=== PATIENT | female | born 1970 | race Caucasian/White ===

== ENCOUNTER 2021-02-22 12:27 | Outpatient (CLI) | payer BC, SELFPAY ==
--- NOTE | ~2021-02-22 | US_ITS ---
EXAMINATION: US pelvic complete w TV DATE: 02/22/2021 12:59 INDICATION: Pelvic pain Comparison:No prior studies for comparison. TECHNIQUE: Multiple transabdominal and endovaginal sonographic images of the pelvis performed. FINDINGS: The uterus measures 9.1 x 4.6 x 6.6 cm. The endometrial complex measures 1.4 cm. The right ovary measures 3.4 x 1.9 x 1.9 cm and the left ovary measures 3 x 2.1 x 2.3 cm. There are s mall bilateral follicular changes. There is a left ovarian cyst measuring 2.1 cm. Normal doppler sign al in both ovaries. There is no free fluid in the pelvis. There are no abnormal masses seen on either side. IMPRESSION: 1. Thickened endomtrial complex. The differential diagnosis includes endometrial hyperplasia, polyp a nd carcinoma. Biopsy is recommended. 2: Left ovarian cyst measuring 2.1 cm. Reviewed, dictated and finalized at location B. IMPRESSION: 1. Thickened endomtrial complex. The differential diagnosis includes endometria l hyperplasia, polyp and carcinoma. Biopsy is recommended. 2: Left ovarian cyst measuring 2.1 cm.
--- NOTE | ~2021-02-22 | MM_ITS ---
EXAMINATION: MM screening carol BI w santino HISTORY: Screening mammogram TECHNIQUE: Craniocaudal and mediolateral oblique 3-D tomosynthesis images were obtained and synthetic 2-D images were generated. CAD analysis was submitted and interpreted. COMPARISON: 09/02/2019, 08/27/2016 bilateral digital screening mammogram examinations BREAST PARENCHYMAL COMPOSITION: The breasts are almost entirely fatty. FINDINGS: Left breast biopsy markers; history of prior benign left breast biopsy. There is no evidenc e of suspicious mass, calcification, or architectural distortion to suggest malignancy in either [address]. There has been no suspicious interval change. IMPRESSION: 1. No mammographic evidence of malignancy. 2. Recommend routine screening mammography in one year. BI-RADS Category 1: Negative Reviewed, dictated and finalized at location A.
== END 2021-02-22 12:28 | disposition home or self-care (01) ==
LOC: CHSIMG 12:28
PROVIDERS: PCP Internal Medicine; Visit Provider Nurse Practitioner Family
DX: Z12.31 Encounter for screening mammogram for malignant neoplasm of breast (principal); R10.2 Pelvic and perineal pain; N94.10 Unspecified dyspareunia
CPT/HCPCS: 76830; 76856; 77063; 77067

== ENCOUNTER → 2021-07-13 01:27 | Outpatient (CLI) | payer BC, SELFPAY ==
[2021-07-13 19:38] LABS: SARS-CoV-2 RNA PCR Negative
== END ==
PROVIDERS: PCP Internal Medicine; Visit Provider Obstetrics & Gynecology Gynecology
DX: Z01.812 Encounter for preprocedural laboratory examination (principal); Z20.822 Contact with and (suspected) exposure to COVID-19
CPT/HCPCS: C9803; U0003; U0005

== ENCOUNTER 2021-07-13 09:36 | Outpatient (CLI) | payer BC, SELFPAY ==
[2021-07-13 10:20] LABS: Anion Gap 6 mmol/L (8-16); Blood Urea Nitrogen 18 mg/dL (7-17); Calcium 9.5 mg/dL (8.4-10.2); Carbon Dioxide 30 mmol/L (22-30); Chloride 103 mmol/L (98-107); Estimated Glomerular Filt Rate 58; Glucose 177 mg/dL (65-110); Potassium 4.1 mmol/L (3.4-5.0); Sodium 139 mmol/L (137-145)
== END 2021-07-13 09:37 | disposition home or self-care (01) ==
PROVIDERS: Anesthesiology; PCP Internal Medicine; Visit Provider Obstetrics & Gynecology Gynecology
DX: Z01.812 Encounter for preprocedural laboratory examination (principal); E11.9 Type 2 diabetes mellitus without complications
CPT/HCPCS: 36415; 80048

== ENCOUNTER 2021-07-16 01:06 | Day surgery (SDC) | payer BC, SELFPAY ==
[2021-07-06 15:37] VITALS: BMI 44.1
[2021-07-16] VITALS (7 sets, daily range): BP systolic 119–139; BP diastolic 58–71; PULSE 50–97; RESP 14–16; TEMP 37.1; O2SAT 97
--- NOTE | 2021-07-16 07:25 | WPDHPUPDATE1 ---
History and Physical Update Update Date/Time: 07/16/21 07:25 History and Physical has been reviewed, including an updated exam of the patient. There are NO changes in the patient's condition. Risks, benefits, and alternatives have been discussed and questions answered. Patient agrees to proceed with procedure.
--- NOTE | 2021-07-16 07:25 | PM.HPGS ---
History of Present Illness History of Present Illness Consent: Risks, benefits, and alternatives have been discussed and questions answered. Patient agrees to proceed with procedure. Chief complaint: Thicken Endometrium Narrative: Olivia Moore is a 51 year old female who was 1st seen on June 11 after primary performed ultrasound in January of 2021 that revealed a thickened endometrial lining at 1.4cm. The patient denies change in her bleeding. Patient has had approximately 2 cycles per year for the past 5 to 7 years. She has never gone 1 entire year without a cycle. It was recommended to proceed with workup in the operating room with D&C hysteroscopy. It was recommended in the operating room due to the cervix noted to be scarred and atrophic as well as the patient's BMI being 44. Risks of infection, bleeding, and perforation were reviewed. Possible pathology is discussed. Patient voices understanding and agrees to proceed. She was given Cytotec 1000 mcg to use for 7 days prior to the procedure. Review of Systems Constitutional: Constitutional: Reports night sweats Genitourinary: Genitourinary: Reports dyspareunia [facility] Past Medical History Medical History (Updated 07/16/21 @ 07:33 by Chelsi Mullen MD) Diabetes mellitus type 2 in obese Dyslipidemia GERD without esophagitis Hypertension Morbid obesity with BMI of 40.0-44.9, adult (normal spontaneous vaginal delivery) KIM on CPAP Surgical History Surgical History (Updated 07/16/21 @ 07:31 by Chelsi Mullen MD) History of History of carpal tunnel release Status post LEEP (loop electrosurgical excision procedure) of cervix Or CO2 cone. The patient is unsure of which procedure she had performed in 1995 Family History Family History Father Diabetes mellitus Mother Diabetes mellitus Social History Social History Smoking packs per day: 1 Smoking cigarettes per day: 20.0 Years smoked: 30 Smoking pack-years: 30.00 Smoking status: Former smoker Tobacco type: cigarettes Smoking end date: 10/27/19 Living arrangements: with family Spiritual care concerns: No Meds Home Medications and Allergies Home Medications Medication Instructions Recorded Confirmed Type Zyrtec 10 mg PO DAILY 10/06/19 07/06/21 History losartan-hydrochlorothiazide 1 tablet PO DAILY 10/06/19 07/06/21 History montelukast 10 mg PO DAILY 10/06/19 07/06/21 History pantoprazole 40 mg PO QAM 10/06/19 07/06/21 History insulin aspart U-100 100 unit/mL 10 unit SUB-Q QAM 05/22/20 07/06/21 History (3 mL) subcutaneous pen insulin glargine 100 unit/mL (3 70 unit SUB-Q QPM 05/22/20 07/06/21 History mL) subcutaneous pen fenofibrate 160 mg tablet See Rx Instructions .ROUTE 06/08/21 07/06/21 Rx .COMPLEX #30 tablet cholecalciferol (vitamin D3) 50 mcg PO DAILY 07/06/21 07/06/21 History docusate sodium [Stool Softener] 100 mg PO BID 07/06/21 07/06/21 History escitalopram oxalate 10 mg PO QAM 07/06/21 07/06/21 History nutritional supp - diet aids 1 tablet PO DAILY 07/06/21 07/06/21 History [Fiber-Tab] Allergies Allergy/AdvReac Type Severity Reaction Status Date / Time No Known Allergies Allergy Verified 07/16/21 07:30 Exam Const: General: other (BMI 44.3) : External Female Exam: normal external appearance Speculum Exam - Vagina: normal appearance of the vagina Speculum Exam - Cervix: normal appearance of the cervix (Appears scarred) Bimanual exam- vagina & uterus: normal bimanual exam (Suboptimal due to pannus) Assessment and Plan Assessment and plan (1) Thickened endometrium: Code(s): R93.89 - Abnormal findings on diagnostic imaging of other specified body structures Status: Acute Assessment and Plan: Plan to proceed with D&C hysteroscopy
--- NOTE | 2021-07-16 07:30 | WPDANESEPPF ---
Anes - Initial Pre Proc Eval Procedure: Operation Date: 07/16/21 09:00 Proposed Procedures p Hysteroscopy Dilation and Curettage - Chelsi Mullen MD Date/Time: 07/16/21 07:30 Surgeon: Chelsi Mullen MD Pre Op Diagnosis: Thicken Endometrium Patient Data Age: 51 Gender: F Height: 1.73 m Weight: 131.55 kg Allergies Allergy/AdvReac Type Severity Reaction Status Date / Time No Known Allergies Allergy Verified 07/16/21 07:30 Home Medications Medication Instructions Recorded Confirmed Type Zyrtec 10 mg PO DAILY 10/06/19 07/06/21 History losartan-hydrochlorothiazide 1 tablet PO DAILY 10/06/19 07/06/21 History montelukast 10 mg PO DAILY 10/06/19 07/06/21 History pantoprazole 40 mg PO QAM 10/06/19 07/06/21 History insulin aspart U-100 100 unit/mL 10 unit SUB-Q QAM 05/22/20 07/06/21 History (3 mL) subcutaneous pen insulin glargine 100 unit/mL (3 70 unit SUB-Q QPM 05/22/20 07/06/21 History mL) subcutaneous pen fenofibrate 160 mg tablet See Rx Instructions .ROUTE 06/08/21 07/06/21 Rx .COMPLEX #30 tablet cholecalciferol (vitamin D3) 50 mcg PO DAILY 07/06/21 07/06/21 History docusate sodium [Stool Softener] 100 mg PO BID 07/06/21 07/06/21 History escitalopram oxalate 10 mg PO QAM 07/06/21 07/06/21 History nutritional supp - diet aids 1 tablet PO DAILY 07/06/21 07/06/21 History [Fiber-Tab] Patient hx anesthesia problems: none Family hx anesthesia problems: none PMFSH Past Medical History Medical History Diabetes mellitus type 2 in obese Hypertension Morbid obesity with BMI of 40.0-44.9, adult Surgical History Surgical History (Updated 07/16/21 @ 07:31 by Chelsi Mullen MD) History of History of carpal tunnel release Status post LEEP (loop electrosurgical excision procedure) of cervix Or CO2 cone. The patient is unsure of which procedure she had performed in 1995 Family History Family History Father Diabetes mellitus Mother Diabetes mellitus Social History Social History Smoking packs per day: 1 Smoking cigarettes per day: 20.0 Years smoked: 30 Smoking pack-years: 30.00 Smoking status: Former smoker Tobacco type: cigarettes Smoking end date: 10/27/19 Living arrangements: with family Spiritual care concerns: No Anes - Eval Final PreProcedure Day of Procedure 07/16/21 07:30 Patient weight: obese Heart: regular rate and rhythm Lungs: clear to auscultation and normal air movement Airway: Mallampati scale class II Neurological: alert and oriented Last oral intake: >/= 8 hours ASA classification: III Emergent: no Anesthetic plan: proceed Anesthesia type and monitoring: general LMA Informed Consent: The patient's anesthetic plan and its attendant risks and benefits were discussed with the patient/family/POA. Questions were solicited and answers provided to the satisfaction of the patient/family/POA.
[2021-07-16] MEDS: ACETAMINOPHEN 500 MG TABLET 1000 MG PO (07:45)
[2021-07-16] MEDS: LACTATED RINGERS 1,000 ML 30 ML IV CONT (07:55)
[2021-07-16 08:02] LABS: Glucose Point of Care 107 mg/dl (65-105)
--- NOTE | 2021-07-16 09:22 | P.OP_ITS ---
Procedure Note - Detailed Date of Procedure 07/16/21 Pre-op Diagnosis Thicken Endometrium Post-op Diagnosis same Procedure Performed D&C hysteroscopy with MyoSure resection Surgeon Chelsi Mullen MD Anesthesia MAC and local Findings Uterus is sounded to 8cm; there is a long thin polyp arising from the left pelvic sidewall; the remainder of the endometrium appears vascular and atrophic Description of Procedure Patient was taken to the operating room and placed under anesthesia in the dorsal lithotomy position. She was prepped and draped in the usual sterile fashion. [place] speculum was placed in the vagina and the cervix was grasped on the anterior lip with a tenaculum. The cervix is injected in each quadrant with lidocaine. The uterus is attempted to be sounded and internal stenosis is noted. Os Finders are used and the cervix is able to be entered. The uterus is then sounded to 8cm. The cervix is serially dilated with Hegar. The diagnostic hysteroscope is placed with the stated findings. The MyoSure device is opened and placed. The polyp was removed under direct visualization. The hysteroscope was removed and the medium sharp curette is used to sharply curette the endometrium until a good uterine cry was noted in all areas. Minimal material is obtained consistent with the visual appearance after the MyoSure. All instruments were then removed. The patient is awakened from anesthesia and taken to recovery in stable condition. Sponge, needle, and instrument counts are correct per the OR staff. Estimated Blood Loss 5 Drains No Packing No Pathology yes (Endometrial shavings and curettings) Complications No immediate complications Condition stable Disposition PACU
[2021-07-16 09:36] LABS: Glucose Point of Care 109 mg/dl (65-105)
[2021-07-16] MEDS: oxyCODONE HCL (*CRX) 5 MG TAB IR PO (09:50)
== END 2021-07-16 10:45 | disposition home or self-care (01) ==
PROVIDERS: PCP Internal Medicine; Visit Provider Obstetrics & Gynecology Gynecology
PROC: 0U5B8ZZ Destruction of Endometrium, Via Natural or Artificial Opening Endoscopic (ICD-10-PCS; CPT 58563; principal; 2021-07-16 09:00)
DX: N84.0 Polyp of corpus uteri (principal); E11.9 Type 2 diabetes mellitus without complications; I10 Essential (primary) hypertension; Z79.4 Long term (current) use of insulin; E66.01 Morbid (severe) obesity due to excess calories; Z68.41 Body mass index [BMI] 40.0-44.9, adult; Z87.891 Personal history of nicotine dependence
CPT/HCPCS: 58558; 82948; 88305; A9270; J3010; J7030; J7120

== ENCOUNTER 2021-11-27 12:12 | Outpatient (CLI) | payer BC, SELFPAY ==
--- NOTE | 2021-11-27 12:17 | ECHO_ITS ---
Patient Info Name: Olivia Moore Age: 51 years : 1970 Gender: Female Ht: 68 in Wt: 290 lbs BSA: 2.58 m2 HR: 61 bpm BP: 145 / 69 mmHg Technical Quality: Good Exam Date: 11/27/2021 1:05 PM Exam Location: [facility] Patient Status: Outpatient Admit Date: 11/27/2021 Staff Ordering Physician: Derrick Cohen DO Gis Mapping Technician: Leonor Harmon Attending Provider: Derrick Cohen DO Referring Physician: Noel JONES; Exam Type: CA echo doppler color flow Study Info Indications R06.00 - Dyspnea, unspecified Complete two-dimensional, color flow and Doppler transthoracic echocardiogram is performed. Strain analysis performed. Summary 1. Complete two-dimensional, color flow and Doppler transthoracic echocardiogram is performed. 2. Left ventricular chamber dimension is mildly enlarged. 3. Left ventricular systolic function is normal, estimated at 55-60%. 4. The left ventricular diastolic function is abnormal. 5. E/e' 11 is mildly elevated. 6. Global longitudinal strain is abnormal at -14.7%. 7. There is trace mitral valve regurgitation. 8. No pulmonary hypertension, estimated pulmonary arterial systolic pressure is 32 mmHg. 9. Dilated inferior vena cava with >50% collapse upon inspiration consistent with elevated right atrial pressure, 10 mmHg. Left Ventricle E/e' 11 is mildly elevated. Global longitudinal strain is abnormal at -14.7%. Left ventricular chamber dimension is mildly enlarged. Left ventricular systolic function is normal, estimated at 55-60%. The left ventricular diastolic function is abnormal. Right Ventricle Right ventricular systolic function is normal and with normal TAPSE 1.9 cm. Right ventricular chamber dimension is normal. Left Atria Left atrial chamber dimension is normal. Right Atria Right atrial chamber dimension is normal. Aortic Valve The aortic valve is trileaflet. There is no aortic valve stenosis. There is no aortic valve regurgitation. Pulmonic Valve There is no pulmonic regurgitation. Mitral Valve There is no mitral valve stenosis. There is trace mitral valve regurgitation. Tricuspid Valve There is no tricuspid valve regurgitation. No pulmonary hypertension, estimated pulmonary arterial systolic pressure is 32 mmHg. Pericardium/Pleural There is no pericardial effusion. Inferior Vena Cava Dilated inferior vena cava with >50% collapse upon inspiration consistent with elevated right atrial pressure, 10 mmHg. Aorta The aortic root size at the sinus of Valsalva is normal. Left Ventricular Outflow Tract Name Value Normal LVOT 2D LVOT Diameter 2.0 cm LVOT Doppler LVOT Peak Velocity 114 cm/s LVOT Peak Gradient 5 mmHg LVOT Mean Gradient 3 mmHg LVOT VTI 24 cm LVOT VTI/AV VTI Ratio 0.9 LVOT Stroke Volume 72 ml Mitral Valve Name Value Normal
== END 2021-11-27 12:13 | disposition home or self-care (01) ==
LOC: CHSIMG 12:14
PROVIDERS: PCP Internal Medicine; Visit Provider Internal Medicine Cardiovascular Disease
DX: R06.00 Dyspnea, unspecified (principal)
CPT/HCPCS: 93306

== ENCOUNTER 2023-04-14 14:01 | Outpatient (CLI) | payer BC, SELFPAY ==
--- NOTE | ~2023-04-14 | XR_ITS ---
Clinical Indication: Cough PA and lateral views of the chest: Comparison: 08/14/2016 Findings: The lungs are clear, without evidence of focal consolidation or pleural effusion. Cardiome diastinal silhouette is within normal limits. Bones and soft tissues are unremarkable. Impression: Normal chest. Reviewed, dictated and finalized at [facility]. Impression: Normal chest.
== END 2023-04-14 14:02 | disposition home or self-care (01) ==
LOC: CHSIMG 14:02
PROVIDERS: PCP Internal Medicine; Visit Provider Internal Medicine
DX: R05.9 Cough, unspecified (principal); R06.2 Wheezing
CPT/HCPCS: 71046

== ENCOUNTER 2023-05-29 12:14 | Outpatient (CLI) | payer BC, SELFPAY ==
[2023-05-29 12:25] LABS: Hematocrit 49.1 % (35.0-49.0); Mean Corpuscular HGB Conc 34.6 g/dL (32.0-36.0); Mean Corpuscular Hemoglobin 32.7 pg (27.0-31.0); Mean Corpuscular Volume 94.4 fL (78.0-102.0); Mean Platelet Volume 11.7 fl (9.2-11.8); Platelet Count Result 176 K/mm3 (150-420); Red Cell Distribution Width 12.6 % (11.6-14.4)
[2023-05-29 12:41] LABS: Alanine Aminotransferase 39 U/L (14-59); Albumin Level 3.9 g/dL (3.4-5.0); Alkaline Phosphatase 80 U/L (46-116); Anion Gap 10 mmol/L (8-16); Aspartate Amino Transferase 22 U/L (15-37); Bilirubin,Total 0.6 mg/dL (0.00-1.00); Blood Urea Nitrogen 26 mg/dL (7-18); Calcium 9.6 mg/dL (8.5-10.1); Carbon Dioxide 27 mmol/L (21-32); Chloride 102 mmol/L (98-108); Estimated Glomerular Filt Rate 34; Glucose 185 mg/dL (70-99); Osmolality Calculated 297 mOsm/kg (285-295); Potassium 3.9 mmol/L (3.5-5.1); Sodium 139 mmol/L (136-145); Total Protein 8.2 g/dL (6.4-8.2)
[2023-05-29 12:49] LABS: Platelet Estimate Adequate (Adequate)
[2023-05-29 12:50] LABS: Band Neutrophils Percent 0 % (0-6); Eosinophils Absolute Manual 0.91 K/mm3 (0.02-0.5); Eosinophils Percent Manual 13 % (1-6); Lymphocytes Absolute Manual 2.45 K/mm3 (1.1-4.5); Lymphocytes Percent Manual 35 % (18-44); Monocytes Absolute Manual 0.28 K/mm3 (0.1-0.90); Monocytes Percent Manual 4 % (3-9); Neutrophils Absolute Manual 3.36 K/mm3 (1.7-7.2); Neutrophils Percent Manual 48 % (46-73); Total Cells Counted 100
== END 2023-05-29 12:15 | disposition home or self-care (01) ==
LOC: CHSLAB 12:15
PROVIDERS: PCP Internal Medicine; Visit Provider Internal Medicine
DX: R19.7 Diarrhea, unspecified (principal)
CPT/HCPCS: 36415; 80053; 85025; 87324

== ENCOUNTER 2023-05-30 09:06 | Outpatient (CLI) | payer BC, SELFPAY ==
[2023-05-30 09:17] LABS: Basophils Absolute Auto 0.05 K/mm3 (0.00-0.10); Basophils Percent Auto 0.8 % (0.0-1.0); Eosinophils Absolute Auto 1.04 K/mm3 (0.02-0.50); Eosinophils Percent Auto 16.7 % (1.0-6.0); Hematocrit 46.6 % (35.0-49.0); Hemoglobin 16.2 g/dL (12.0-15.0); Immature Granulocyte Absolute 0.02 K/mm3 (0.00-0.00); Immature Granulocyte Percent A 0.3 % (0.0-0.0); Lymphocytes Absolute Auto 2.52 K/mm3 (1.10-4.50); Lymphocytes Percent Auto 40.5 % (18.0-42.0); Mean Corpuscular HGB Conc 34.8 g/dL (32.0-36.0); Mean Corpuscular Hemoglobin 32.8 pg (27.0-31.0); Mean Corpuscular Volume 94.3 fL (78.0-102.0); Mean Platelet Volume 11.8 fl (9.2-11.8); Monocytes Absolute Auto 0.44 K/mm3 (0.10-0.90); Monocytes Percent Auto 7.1 % (2.0-11.0); Neutrophils Absolute Auto 2.2 K/mm3 (1.7-7.2); Neutrophils Percent Auto 34.6 % (50.0-70.0); Platelet Count Result 165 K/mm3 (150-420); Red Blood Count 4.94 M/mm3 (4.20-5.40); Red Cell Distribution Width 12.4 % (11.6-14.4); White Blood Count 6.2 K/mm3 (4.8-10.8)
[2023-05-30 09:55] LABS: Alanine Aminotransferase 36 U/L (14-59); Albumin Level 3.6 g/dL (3.4-5.0); Alkaline Phosphatase 78 U/L (46-116); Anion Gap 10 mmol/L (8-16); Aspartate Amino Transferase 19 U/L (15-37); Bilirubin,Total 0.4 mg/dL (0.00-1.00); Blood Urea Nitrogen 18 mg/dL (7-18); Calcium 9.1 mg/dL (8.5-10.1); Carbon Dioxide 28 mmol/L (21-32); Chloride 103 mmol/L (98-108); Estimated Glomerular Filt Rate 49; Glucose 170 mg/dL (70-99); Osmolality Calculated 297 mOsm/kg (285-295); Potassium 4.2 mmol/L (3.5-5.1); Sodium 141 mmol/L (136-145); Total Protein 7.1 g/dL (6.4-8.2)
== END 2023-05-30 09:07 | disposition home or self-care (01) ==
LOC: CHSLAB 09:08
PROVIDERS: PCP Internal Medicine; Visit Provider Internal Medicine
DX: K57.92 Diverticulitis of intestine, part unspecified, without perforation or abscess without bleeding (principal)
CPT/HCPCS: 36415; 80053; 85025

== ENCOUNTER 2023-05-30 14:11 | Outpatient (CLI) | payer BC, SELFPAY ==
--- NOTE | ~2023-05-30 | CT_ITS ---
EXAMINATION: CT abdomen pelvis w con DATE: 05/30/2023 15:29 INDICATION: Diarrhea. TECHNIQUE: Computed tomography (CT) of the abdomen and pelvis was performed with 100 mL Omnipaque 350 intravenous contrast. Automated exposure control and iterative reconstruction technique were employe d. The dose-length product was 1504.00 mGy-cm. COMPARISON: CT abdomen and pelvis 03/19/2012 FINDINGS: The visualized portions of the lung bases demonstrate mild atelectasis. No pleural effusion . The heart size is normal. No pericardial effusion. There is diffuse hepatic steatosis. The gallblad maxwell, spleen, pancreas, adrenal glands, and right kidney are normal. There is an 11 mm mass in left ki dney measuring soft tissue attenuation. There is diverticulosis of the colon without evidence of dive rticulitis. There are no dilated loops of bowel. The appendix is normal. Aortic atherosclerosis is no julia. The left ovarian vein and periuterine veins are enlarged, consistent with pelvic venous insuffic iency. There are no pathologically enlarged lymph nodes. There is no free intraperitoneal fluid. Ther e is mild thoracic and lumbar spondylosis. IMPRESSION: 1. Diffuse hepatic steatosis. 2. 11 mm left kidney mass, which may be a hemorrhagic cyst or less likely a neoplasm. Abdomen CT or M RI without and with contrast is recommended. 3. Pelvic venous insufficiency. Reviewed, dictated and finalized at location B. IMPRESSION: 1. Diffuse hepatic steatosis. 2. 11 mm left kidney mass, which may be a hemorrhagic cyst or less likely a herber plasm. Abdomen CT or MRI without and with contrast is recommended. 3. Pelvic venous insufficiency.
== END 2023-05-30 14:12 | disposition home or self-care (01) ==
LOC: CHSIMG 14:14
PROVIDERS: PCP Internal Medicine; Visit Provider Internal Medicine
DX: K76.0 Fatty (change of) liver, not elsewhere classified (principal); I87.2 Venous insufficiency (chronic) (peripheral); N28.89 Other specified disorders of kidney and ureter; R19.7 Diarrhea, unspecified
CPT/HCPCS: 74177; Q9967

== ENCOUNTER 2023-06-02 08:54 | Outpatient (CLI) | payer BC, SELFPAY ==
[2023-06-02 09:07] LABS: Hematocrit 47.3 % (35.0-49.0); Hemoglobin 16.1 g/dL (12.0-15.0); Immature Platelet Fraction Pct 6.9 % (1.0-7.0); Mean Corpuscular Hemoglobin 32.3 pg (27.0-31.0); Mean Corpuscular Volume 94.8 fL (78.0-102.0); Mean Platelet Volume 11.6 fl (9.2-11.8); Platelet Count Result 138 K/mm3 (150-420); Red Blood Count 4.99 M/mm3 (4.20-5.40); Red Cell Distribution Width 12.4 % (11.6-14.4); White Blood Count 4.8 K/mm3 (4.8-10.8)
[2023-06-02 09:35] LABS: Band Neutrophils Percent 0 % (0-6); Basophils Absolute Manual 0.04 K/mm3 (0-0.1); Basophils Percent Manual 1 % (0-1); Eosinophils Absolute Manual 0.86 K/mm3 (0.02-0.5); Eosinophils Percent Manual 18 % (1-6); Lymphocytes Absolute Manual 1.96 K/mm3 (1.1-4.5); Lymphocytes Percent Manual 41 % (18-44); Monocytes Absolute Manual 0.38 K/mm3 (0.1-0.90); Monocytes Percent Manual 8 % (3-9); Neutrophils Absolute Manual 1.53 K/mm3 (1.7-7.2); Neutrophils Percent Manual 32 % (46-73); Platelet Estimate Adequate (Adequate); Total Cells Counted 100
[2023-06-02 10:06] LABS: Anion Gap 7 mmol/L (8-16); Blood Urea Nitrogen 13 mg/dL (7-18); Calcium 9.1 mg/dL (8.5-10.1); Carbon Dioxide 33 mmol/L (21-32); Chloride 102 mmol/L (98-108); Estimated Glomerular Filt Rate 48; Glucose 153 mg/dL (70-99); Osmolality Calculated 297 mOsm/kg (285-295); Potassium 3.7 mmol/L (3.5-5.1); Sodium 142 mmol/L (136-145)
[2023-06-02 11:06] LABS: Alanine Aminotransferase 22 U/L (14-59); Albumin Level 3.6 g/dL (3.4-5.0); Alkaline Phosphatase 75 U/L (46-116); Aspartate Amino Transferase 18 U/L (15-37); Bilirubin Direct 0.1 mg/dL (0-0.2); Bilirubin,Total 0.3 mg/dL (0.00-1.00); Total Protein 7.1 g/dL (6.4-8.2)
== END 2023-06-02 08:55 | disposition home or self-care (01) ==
LOC: CHSLAB 08:57
PROVIDERS: PCP Internal Medicine; Visit Provider Internal Medicine
DX: E86.0 Dehydration (principal); R19.7 Diarrhea, unspecified
CPT/HCPCS: 36415; 80048; 80076; 85025; 85055

== ENCOUNTER 2023-06-19 16:57 | Outpatient (CLI) | payer BC, SELFPAY ==
[2023-06-19 17:22] LABS: Hematocrit 46.9 % (35.0-49.0); Mean Corpuscular HGB Conc 34.1 g/dL (32.0-36.0); Mean Corpuscular Hemoglobin 32.2 pg (27.0-31.0); Mean Corpuscular Volume 94.4 fL (78.0-102.0); Mean Platelet Volume 11.7 fl (9.2-11.8); Platelet Count Result 202 K/mm3 (150-420); Red Blood Count 4.97 M/mm3 (4.20-5.40); Red Cell Distribution Width 12.5 % (11.6-14.4); White Blood Count 8.5 K/mm3 (4.8-10.8)
[2023-06-19 17:40] LABS: Alanine Aminotransferase 30 U/L (14-59); Albumin Level 3.8 g/dL (3.4-5.0); Alkaline Phosphatase 69 U/L (46-116); Anion Gap 7 mmol/L (8-16); Aspartate Amino Transferase 20 U/L (15-37); Bilirubin,Total 0.5 mg/dL (0.00-1.00); Blood Urea Nitrogen 24 mg/dL (7-18); Calcium 9.4 mg/dL (8.5-10.1); Carbon Dioxide 31 mmol/L (21-32); Chloride 100 mmol/L (98-108); Estimated Glomerular Filt Rate 46; Glucose 107 mg/dL (70-99); Osmolality Calculated 290 mOsm/kg (285-295); Potassium 3.9 mmol/L (3.5-5.1); Sodium 138 mmol/L (136-145); Total Protein 7.8 g/dL (6.4-8.2)
[2023-06-19 17:43] LABS: Band Neutrophils Percent 0 % (0-6); Basophils Percent Manual 0 % (0-1); Eosinophils Absolute Manual 1.19 K/mm3 (0.02-0.5); Eosinophils Percent Manual 14 % (1-6); Lymphocytes Absolute Manual 2.38 K/mm3 (1.1-4.5); Lymphocytes Percent Manual 28 % (18-44); Monocytes Absolute Manual 0.42 K/mm3 (0.1-0.90); Monocytes Percent Manual 5 % (3-9); Neutrophils Percent Manual 53 % (46-73); Platelet Estimate Adequate (Adequate); Total Cells Counted 100
== END 2023-06-19 16:58 | disposition home or self-care (01) ==
LOC: CHSLAB 17:00
PROVIDERS: PCP Internal Medicine; Visit Provider Internal Medicine
DX: R19.7 Diarrhea, unspecified (principal)
CPT/HCPCS: 36415; 80053; 85025

== ENCOUNTER 2023-06-20 08:52 | Outpatient (CLI) | payer BC, SELFPAY ==
--- NOTE | ~2023-06-20 | CT_ITS ---
EXAMINATION: CT abdomen pelvis w con DATE: 06/20/2023 09:34 INDICATION: Left abdominal pain. Diarrhea and nausea and vomiting. TECHNIQUE: Computed tomography (CT) of the abdomen and pelvis was performed with 100 mL Omnipaque 350 intravenous contrast. Automated exposure control and iterative reconstruction technique were employe d. The dose-length product was 1435.01 mGy-cm. COMPARISON: CT abdomen and pelvis 05/30/2023 FINDINGS: The visualized portions of the lung bases demonstrated mild atelectasis. No pleural effusio n. The heart size is normal. No pericardial effusion. There is diffuse hepatic steatosis. The gallbla dder, spleen, pancreas, adrenal glands, and right kidney are normal. There is a 12 mm mass of left ki dney measuring soft tissue attenuation. The left periuterine and ovarian veins are enlarged, consiste nt with pelvic venous insufficiency. There is a 2.5 cm uterine fibroid. There is diverticulosis of th e colon without evidence of diverticulitis. There are no dilated loops of bowel. The appendix is norm al. Aortic atherosclerosis is noted. There is mild periportal lymphadenopathy. There is no free intra peritoneal fluid. There is mild thoracic and lumbar spondylosis. IMPRESSION: 1. Diffuse hepatic steatosis. 2. Uterine fibroid. 3. Pelvic venous insufficiency. 4. 12 mm left kidney mass, which may be a hemorrhagic cyst or less likely a neoplasm. Abdomen CT or M RI without and with contrast is recommended. 5. Mild periportal lymphadenopathy, likely reactive. Reviewed, dictated and finalized at location A. IMPRESSION: 1. Diffuse hepatic steatosis. 2. Uterine fibroid. 3. Pelvic venous insufficiency. 4. 12 mm left kidney mass, which may be a hemorrhagic cyst or less likely a herber plasm. Abdomen CT or MRI without and with contrast is recommended. 5. Mild periportal lymphadenopathy, likely reactive.
[2023-06-20 09:19] LABS: Hematocrit 47.6 % (35.0-49.0); Hemoglobin 16.5 g/dL (12.0-15.0); Mean Corpuscular HGB Conc 34.7 g/dL (32.0-36.0); Mean Corpuscular Hemoglobin 32.8 pg (27.0-31.0); Mean Corpuscular Volume 94.6 fL (78.0-102.0); Mean Platelet Volume 11.3 fl (9.2-11.8); Platelet Count Result 215 K/mm3 (150-420); Red Blood Count 5.03 M/mm3 (4.20-5.40); Red Cell Distribution Width 12.5 % (11.6-14.4); White Blood Count 7.5 K/mm3 (4.8-10.8)
[2023-06-20 09:44] LABS: Appearance Urine Clear (Clear); Bilirubin Urine 1+ (Negative); Blood Urine Negative (Negative); Color Urine Yellow (Yellow); Glucose Urine UA Negative (Negative); Ketones Urine Negative (Negative); Leukocyte Esterase Ur Trace (Negative); Nitrate Urine Negative (Negative); Protein Urine Trace (Negative); Specific Grav Ur 1.025 (1.010-1.020)
[2023-06-20 10:03] LABS: Alanine Aminotransferase 31 U/L (14-59); Albumin Level 3.8 g/dL (3.4-5.0); Alkaline Phosphatase 71 U/L (46-116); Amylase 46 U/L (25-115); Anion Gap 9 mmol/L (8-16); Aspartate Amino Transferase 31 U/L (15-37); Bilirubin,Total 0.5 mg/dL (0.00-1.00); Blood Urea Nitrogen 22 mg/dL (7-18); Calcium 9.6 mg/dL (8.5-10.1); Carbon Dioxide 29 mmol/L (21-32); Chloride 100 mmol/L (98-108); Estimated Glomerular Filt Rate 50; Lipase 51 U/L (16-77); Sodium 138 mmol/L (136-145); Total Protein 7.9 g/dL (6.4-8.2)
[2023-06-20 10:08] LABS: Glucose 146 mg/dL (70-99); Osmolality Calculated 292 mOsm/kg (285-295)
[2023-06-20 10:54] LABS: Add Urine Microscopic? YES; Bacteria Urine Trace /hpf; RBC Urine None seen /hpf (0-2); Squamous Epithelial Cell Urine Few /hpf (Few); WBC Urine 0-5 /hpf (0-3)
[2023-06-20 10:59] LABS: Band Neutrophils Percent 0 % (0-6); Basophils Percent Manual 0 % (0-1); Eosinophils Absolute Manual 1.05 K/mm3 (0.02-0.5); Eosinophils Percent Manual 14 % (1-6); Lymphocytes Absolute Manual 2.85 K/mm3 (1.1-4.5); Lymphocytes Percent Manual 38 % (18-44); Metamyelocytes Percent 0 %; Monocytes Absolute Manual 0.67 K/mm3 (0.1-0.90); Monocytes Percent Manual 9 % (3-9); Myelocytes Percent 0 %; Neutrophils Absolute Manual 2.92 K/mm3 (1.7-7.2); Neutrophils Percent Manual 39 % (46-73); Platelet Estimate Adequate (Adequate); Total Cells Counted 100
[2023-06-20 11:25] LABS: Erythrocyte Sedimentation Rate 6 mm/hr (0-20)
[2023-06-26 10:24] LABS: ANCA Screen Negative (Negative); Myeloperoxidase Ab <1.0 AI (<1.0); Proteinase-3 Ab <1.0 AI (<1.0); S cerevisiae Ab (IgA) 21.4 U (<=20.0); S cerevisiae Ab (IgG) 21.9 U (<=20.0)
[2023-06-28 01:27] LABS: Calprotectin, Stool <5 mcg/g
== END 2023-06-20 08:53 | disposition home or self-care (01) ==
LOC: CHSLAB 08:54
PROVIDERS: PCP Internal Medicine; Visit Provider Internal Medicine
DX: R10.9 Unspecified abdominal pain (principal); R11.2 Nausea with vomiting, unspecified; R19.7 Diarrhea, unspecified; K76.0 Fatty (change of) liver, not elsewhere classified; D25.9 Leiomyoma of uterus, unspecified; I87.2 Venous insufficiency (chronic) (peripheral); R59.1 Generalized enlarged lymph nodes; N28.89 Other specified disorders of kidney and ureter
CPT/HCPCS: 36415; 74177; 80053; 81001; 82150; 83690; 83993; 85025; 85652; 86036; 86140; 86671; 87045; 87077; 87086; 87088; 87324; 87427; 87449; Q9967

== ENCOUNTER 2023-06-27 11:10 | Outpatient (CLI) | payer BC, SELFPAY ==
[2023-06-27 11:47] LABS: Anion Gap 6 mmol/L (8-16); Blood Urea Nitrogen 14 mg/dL (7-18); Calcium 9.2 mg/dL (8.5-10.1); Carbon Dioxide 30 mmol/L (21-32); Chloride 101 mmol/L (98-108); Estimated Glomerular Filt Rate 46; Glucose 169 mg/dL (70-99); Osmolality Calculated 288 mOsm/kg (285-295); Potassium 4.2 mmol/L (3.5-5.1); Sodium 137 mmol/L (136-145)
== END 2023-06-27 11:11 | disposition home or self-care (01) ==
LOC: CHSLAB 11:11
PROVIDERS: PCP Internal Medicine; Visit Provider Internal Medicine
DX: E86.0 Dehydration (principal)
CPT/HCPCS: 36415; 80048

== ENCOUNTER 2024-04-12 12:10 | Outpatient (CLI) | payer BC, SELFPAY ==
--- NOTE | ~2024-04-12 | DEXA_ITS ---
? Bone Density Report? Name:? SAMM REA Patient ID:??? [id number] Age:? 53 Sex:? Female Ethnicity:? White Date of : 1970 Indication: postmenopausal; screening for osteoporosis; Referring Provider: Lauren Denson Study: Bone densitometry was performed. Exam Date: April 12, 2024 Accession number: [id number] Bone Density: Region? BMD??? T-score? Z-score?? Classification AP Spine(L1, L2, L3)? 1.136??? 1.1?2.2? Normal Femoral Neck (Left)? 0.718?? -1.2? -0.1? Osteopenia Total Hip (Left)? 1.031??? 0.7? 1.4? Normal Femoral Neck (Right)? 0.732?? -1.1? 0.0? Osteopenia Total Hip (Right)? 1.041??? 0.8? 1.5? Normal Femoral Neck Mean? 0.725?? -1.1? 0.0? Osteopenia Total Hip Mean? 1.036??? 0.8? 1.5? Normal World Health Organization criteria for BMD impression classify patients as: Normal (T-score at or above -1.0), Osteopenia (T-score between -1.0 and -2.5), or Osteoporosis (T-score at or below -2.5). 10-year Fracture Risk(1): Major Osteoporotic Fracture? 5.5% Hip Fracture? 0.5% Reported Risk Factors: [place] (), Neck BMD=0.718, BMI=41.1, smoking (1) FRAX? Version 3.08. Fracture probability calculated for an untreated patient. Fracture probability may be lower if the patient has received treatment. Clinical Information Provided by Patient: Smokes Has used the following medications: HRT (i.e. estrogen/hormone therapy), Vitamin D Patient maximum height was 68.0 Menopause Age: 50 No regular weight bearing exercise Drinks caffeinated beverages Onset of menses at age 10 Number of children 2 Missed period for more than 6 months in a row Impression: The patient has low bone mass, based on the Left Femoral Neck T- score. The patient has risk factors, including: smoking. Discussion: BONE DENSITY IS LOW AT ONE OR MORE SKELETAL SITES. This patient's lowest T-score is low at one or more skeletal sites.? It meets the World Health Organization's (WHO) criteria for ?low bone mass?? (T-score between -1.0 and -2.5).? The patient's 10-year risk of fracture as calculated by FRAX is less than the threshold where pharmacological therapy is recommended by the National Osteoporosis Foundation (NOF).? However, all treatment decisions require clinical judgment and consideration of individual patient factors, including patient preferences, comorbidities, previous drug use, risk factors not captured in the FRAX model (e.g., frailty, falls, vitamin D deficiency, increased bone turnover, interval significant decline in bone density) and possible under or overestimation of fracture risk by FRAX. The patient should follow a heal
--- NOTE | ~2024-04-12 | CT_ITS ---
EXAMINATION:CT lung screening DATE: 04/12/2024 12:44 INDICATION: Personal history of nicotine dependence. Smoker who quit 5 years ago with 30 pack year hi story. TECHNIQUE: Computed tomography (CT) of the chest was performed without intravenous contrast. Automate d exposure control and iterative reconstruction technique were employed. The dose-length product (DLP ) was 366.90 mGy-cm. COMPARISON: CT abdomen and pelvis 06/20/2023 FINDINGS: The lungs demonstrate mild atelectasis. There is a 4 mm nodule in right upper lobe. There a re nodules at the fissures in right lung measuring up to 4 mm. There are multiple nodules in left ary g measuring up to 4 mm. No pleural effusion. The heart size is normal. There are coronary artery calc ifications. No pericardial effusion. There is diffuse hepatic steatosis. There is mild thoracic spond ylosis. IMPRESSION: 1. Lung-RADS category 2: Benign appearance or behavior. Continue annual screening with noncontrast lo w-dose chest CT in 12 months. Reviewed, dictated and finalized at location E. IMPRESSION: 1. Lung-RADS category 2: Benign appearance or behavior. Continue annual screeni ng with noncontrast low-dose chest CT in 12 months.
--- NOTE | ~2024-04-12 | MM_ITS ---
EXAMINATION: MM screening [facility] BI w santino HISTORY: Screening TECHNIQUE: Craniocaudal and mediolateral oblique 3-D tomosynthesis images were obtained and synthetic 2-D images were generated. CAD analysis was submitted and interpreted. COMPARISON: Comparison to multiple prior studies sequentially, with oldest reviewed study dated 10/2015. BREAST PARENCHYMAL COMPOSITION: There are scattered areas of fibroglandular density. FINDINGS: There is no evidence of suspicious mass, calcification, or architectural distortion to sugg est malignancy in either breast. There has been no suspicious interval change. IMPRESSION: 1. No mammographic evidence of malignancy. 2. Recommend routine screening mammography in one year. BI-RADS Category 1: Negative Reviewed, dictated and finalized at location B.
== END 2024-04-12 12:11 | disposition home or self-care (01) ==
PROVIDERS: PCP Internal Medicine; Visit Provider Internal Medicine
DX: Z12.2 Encounter for screening for malignant neoplasm of respiratory organs (principal); Z87.891 Personal history of nicotine dependence; Z12.31 Encounter for screening mammogram for malignant neoplasm of breast; Z78.0 Asymptomatic menopausal state; M85.89 Other specified disorders of bone density and structure, multiple sites
CPT/HCPCS: 71271; 77063; 77067; 77080

== ENCOUNTER 2025-04-18 12:37 | Outpatient (CLI) | payer BC, SELFPAY ==
--- NOTE | ~2025-04-18 | CT_ITS ---
CT Scan of the Chest without Contrast: Clinical Indication: Lung cancer screening, nicotine dependence Technique: Contiguous sections were acquired throughout the chest without intravenous contrast. Dose reduction technique was used on this scan by utilizing automated exposure control and iterative recon struction technique. The dose-length product (DLP) was 281.19 mGy-cm. COMPARISON: 04/12/2024 Findings: There is no evidence of any significant mediastinal, hilar or axillary lymphadenopathy. The mediastin al soft tissues appear normal. There is no evidence of pleural or pericardial effusion. 3 mm right middle lobe pulmonary nodule present (axial image 68). There is linear scarring in the lef t lower lobe. 3 mm left upper lobe nodule present (axial image 44). Images through the upper abdomen reveal no abnormalities. Impression: Lung RADS 2: Benign appearance. 12 month follow-up screening CT advised. Reviewed, dictated and finalized at [facility]. Impression: Lung RADS 2: Benign appearance. 12 month follow-up screening CT advised.
== END 2025-04-18 12:38 | disposition home or self-care (01) ==
LOC: CHSIMG 12:40
PROVIDERS: PCP Internal Medicine; Visit Provider Internal Medicine
DX: Z12.2 Encounter for screening for malignant neoplasm of respiratory organs (principal); Z87.891 Personal history of nicotine dependence
CPT/HCPCS: 71271

== ENCOUNTER 2025-04-25 14:07 | Outpatient (CLI) | payer BC, SELFPAY ==
--- NOTE | ~2025-04-25 | MM_ITS ---
EXAMINATION: MM screening carol BI w santino HISTORY: Screening mammogram TECHNIQUE: Craniocaudal and mediolateral oblique 3-D tomosynthesis images were obtained and synthetic 2-D images were generated. CAD analysis was submitted and interpreted. COMPARISON: 04/12/2024, 02/22/2021 BREAST PARENCHYMAL COMPOSITION:Not Dense. The breasts are almost entirely fatty FINDINGS: No suspicious mass, calcification, or architectural distortion are identified in either edwin ast to suggest malignancy. There has been no suspicious interval change. IMPRESSION: No mammographic evidence of malignancy. Recommend routine screening mammography in one year. BI-RADS Category 1: Negative Reviewed, dictated and finalized at location .
--- OUTSIDE RECORDS SUMMARY | 2025-04-25 14:26 | XMS_ITS | Clinical Summary ---
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 Gender Identity Not on file Sexual Orientation Not on file Obstetrics History Plan of Treatment Health Maintenance Due Date Last Done Comments Breast Cancer Screening-Mammogram 1968 Cervical Cancer Screening 1968 Colon Cancer Screening-Colonoscopy 1968 Depression Screening 1968 Hepatitis C Screening 1968 Hepatitis B Screening 1986 Regular Well Visit/Exam 18-64 1986 Covid-19 Vaccine ( season) 2024 07/04/2021, 06/13/2021 Influenza Vaccine (Season Ended) 2025 10/04/2022, 08/15/2021, 07/27/2020, Additional history exists DTaP/Tdap/Td Vaccine (2 - Td or Tdap) 08/14/2026 08/14/2016 Pneumococcal vaccine <65 Aged Out 02/25/2019, 05/2018 No longer eligible based on patient's age to complete this topic Zoster Vaccine Completed 07/27/2020, 04/21/2019 Insurance [facility] [employer] Care Teams Turning Machine Operator Helper Relationship Specialty Start Date End Date Lauren Denson MD [address] [place] [address] PCP - General Internal Medicine 07/15/23
--- OUTSIDE RECORDS SUMMARY | 2025-04-25 14:26 | XMS_ITS | Referral Summary ---
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 Gender Identity Not on file Sexual Orientation Not on file Plan of Treatment Not on file Insurance [facility] [employer] Member Subscriber Plan / Payer (Ef fective 2022-Present) Name:Olivia Rea Relation to Subscriber:Spouse Name:PILO REA Date of :1961 Address: [address] [place] [id number] Payer ID:[id number] (NAIC) Group ID:[id number] Type:[facility] Address: [facility] [id number] [id number] Care Teams Medical Front Desk Specialist Relationship Specialty Start Date End Date Lauren Denson MD [address] [place] [address] PCP - General Internal Medicine 07/15/23
--- OUTSIDE RECORDS SUMMARY | 2025-04-25 14:26 | XMS_ITS | Clinical Summary ---
Author Organization [facility] Address [facility] [place] [address] Care Team Providers Care Paint Prep Technician Name Role Phone Unavailable Primary Care Provider Unavailabl e Social History Tobacco Use Types Packs/Day Years Used Date Smoking Tobacco: Never Assessed Comments Unknown Sex and Gender Information Value Date Recorded Sex Assigned at Not on file Legal Sex Female 8:57 PM CDT Gender Identity Not on file Sexual Orientation Not on file Plan of Treatment Health Maintenance Due Date Last Done Comments Cervical Cancer Screening Pa p Smear (Age 30 to 64) Every 3 Years 1968 Colorectal Cancer Screening Colonoscopy (10 Years) 1968 Annual Physical 1971 Hepatitis C 1986 DTaP, Tdap and Td Vaccines ( 1 - Tdap) 1987 Hepatitis B Vaccines (1 of 3 - 19+ 3-dose series) 1987 Cervical Cancer Screening Pa p with HPV Testing (Age 30 to 64) Every 5 Years 1998 Cervical Cancer Screening with HPV 1998 Mammogram Screening 2008 Pneumococcal Vaccine: 50+ Ye ars (1 of 1 - PCV) 2018 Zoster Vaccines (1 of 2) 2018 COVID-19 Vaccine (2023-2 5 season) 2024 Meningococcal B Vaccine Aged Out No l onger eligible based on patient's age to complete this topic Meningococcal Vaccine Aged Out No katie tee eligible based on patient's age to complete this topic RSV Immunizations Under 20 Months Aged Out No longer eligible based on patient's age to complete this topic
== END 2025-04-25 14:08 | disposition home or self-care (01) ==
LOC: CHSIMG 14:09
PROVIDERS: PCP Internal Medicine; Visit Provider Obstetrics & Gynecology Gynecology
DX: Z12.31 Encounter for screening mammogram for malignant neoplasm of breast (principal)
CPT/HCPCS: 77063; 77067